=== PATIENT | female | born 1955 | race Hispanic/Latino ===

== ENCOUNTER 2018-06-19 07:26 | Inpatient (IN) | payer BC ==
[2018-06-18 13:16] LABS: BASOPHILS % (AUTO) 0.7 % (0.0-5.0); EOSINOPHILS % (AUTO) 1.1 % (0.0-8.0); HEMATOCRIT 41.8 % (36-48); LYMPHOCYTES % (AUTO) 40.6 % (21.0-51.0); MEAN CORPUSCULAR HEMOGLOBIN 32.1 pg (27.0-33.0); MEAN CORPUSCULAR HGB CONC 33.9 g/dL (32.0-36.0); MEAN CORPUSCULAR VOLUME 94.7 fL (79-99); MONOCYTES % (AUTO) 4.9 % (3.0-13.0); NEUTROPHILS % (AUTO) 52.7 % (40.0-77.0); PLATELET COUNT (AUTO) 185 K/uL (130-400); RED BLOOD CELL COUNT(AUTO) 4.41 MIL/uL (4.00-5.50); RED CELL DISTRIBUTION WIDTH 13.7 % (11.0-15.5); WHITE BLOOD COUNT (AUTO) 6.5 K/uL (4.8-10.8)
[2018-06-18 13:17] VITALS: BP 118/67
[~2018-06-19] VITALS: Ht 160 cm; Wt 73.6 kg
[2018-06-19] VITALS (19 sets, daily range): BP systolic 101–141; BP diastolic 55–79
[~2018-06-19 07:26] MED LIST: AMYL1CAP61 PO; CALDOLOR 800MG+NS 250ML 250 ML IV SCH; CEFAZOLIN SODIUM 1 GM VIAL IVP SCH; ESTR42.53 VG; LACTATED RINGERS 1000ML 1,000 ML IV SCH; OMEP20CA10 PO
[2018-06-19] MEDS ORDERED: BUPIVACAINE/PF 0.25% 30ML VIAL IJ ONE (08:37)
[2018-06-19] MEDS ORDERED: DEXAMETHASONE SOD PHOSPHATE 10MG/ML 1ML VIAL ONE (09:22)
[2018-06-19] MEDS ORDERED: GLYCOPYRROLATE 1 MG/5 ML SYRINGE ONE (09:22)
[2018-06-19] MEDS ORDERED: ONDANSETRON HCL 4 MG/2 ML VIAL ONE (09:22)
[2018-06-19] MEDS ORDERED: LIDOCAINE PF 2% 5ML ABBOJECT ONE (09:22)
[2018-06-19] MEDS ORDERED: FENTANYL CITRATE PF 50 MCG/1 ML 2ML VIAL ONE (09:23)
[2018-06-19] MEDS ORDERED: ROCURONIUM 10MG/1ML SYR 10 MG/ML ML ONE (09:23)
[2018-06-19] MEDS ORDERED: PROPOFOL 10 MG/ML 20ML VIAL IV ONE (09:23)
[2018-06-19] MEDS ORDERED: MIDAZOLAM HCL 1 MG/ML 2ML VIAL ONE (09:23)
[2018-06-19] MEDS ORDERED: NEOSTIGMINE 5MG/5ML SYR IV ONE (09:23)
[2018-06-19] MEDS ORDERED: BUPIVACAINE/EPI/PF 0.5% 30ML VIAL IJ ONE (10:13)
[2018-06-19] MEDS ORDERED: LIDOCAINE 1%-EPI 1:100,000 20 ML VIAL IJ ONE (10:15)
[2018-06-19] MEDS ORDERED: ACETAMINOPHEN-CODEINE 300/30MG TAB PO PRN (11:45)
[2018-06-19] MEDS ORDERED: DOCUSATE SODIUM 100 MG CAP PO PRN (11:45)
[2018-06-19] MEDS ORDERED: SIMETHICONE 80 MG TAB.CHEW PO PRN (11:45)
[2018-06-19] MEDS ORDERED: ONDANSETRON HCL 4 MG/2 ML VIAL IVP PRN (11:45)
[2018-06-19] MEDS ORDERED: BISACODYL 10 MG SUPP.RECT RC PRN (11:45)
[2018-06-19] MEDS: DEXTROSE 5 %-0.45 % NACL 1,000 ML IV PRN ×2 (13:46→23:13)
[2018-06-19] MEDS: CALDOLOR 800MG+NS 250ML 250 ML IVPB SCH (19:24)
[2018-06-19] MEDS: CEFAZOLIN 3GM /D5W 100ML 100 ML IV SCH (21:11)
[2018-06-20 00:18] VITALS: BP 112/66
[2018-06-20] MEDS: CALDOLOR 800MG+NS 250ML 250 ML IVPB SCH (03:31)
[2018-06-20 04:24] VITALS: BP 131/66
[2018-06-20] MEDS: CEFAZOLIN 3GM /D5W 100ML 100 ML IV SCH (05:56)
[2018-06-20 06:49] LABS: HEMATOCRIT 37.9 % (36-48); MEAN CORPUSCULAR HEMOGLOBIN 32.3 pg (27.0-33.0); MEAN CORPUSCULAR HGB CONC 34.2 g/dL (32.0-36.0); MEAN CORPUSCULAR VOLUME 94.3 fL (79-99); PLATELET COUNT (AUTO) 146 K/uL (130-400); RED BLOOD CELL COUNT(AUTO) 4.02 MIL/uL (4.00-5.50); RED CELL DISTRIBUTION WIDTH 13.5 % (11.0-15.5); WHITE BLOOD COUNT (AUTO) 9.9 K/uL (4.8-10.8)
[2018-06-20 07:39] VITALS: BP 121/53
[2018-06-20] MEDS ORDERED: PANTOPRAZOLE SODIUM 40 MG TABLET.DR PO SCH (09:00)
[2018-06-20 11:05] VITALS: BP 136/74
[2018-06-20] MEDS ORDERED: IBUPROFEN 800 MG TAB PO SCH (11:45)
== END 2018-06-20 15:25 | disposition home or self-care (01) | DRG 743 ==
LOC: DAH 07:26 → WSH 07:27 → EDSTATUS 10:00 → WSH 12:55 → DAH 23:05
PROC: 0UT9FZZ Resection of Uterus, Via Natural or Artificial Opening With Percutaneous Endoscopic Assistance (ICD-10-PCS; principal; 2018-06-19 09:20)
PROC: 0JQC0ZZ Repair Pelvic Region Subcutaneous Tissue and Fascia, Open Approach (ICD-10-PCS; 2018-06-19 09:20)
PROC: 3E02340 Introduction of Influenza Vaccine into Muscle, Percutaneous Approach (ICD-10-PCS; 2018-06-20)
DX: N81.4 Uterovaginal prolapse, unspecified (principal); N92.0 Excessive and frequent menstruation with regular cycle; N81.6 Rectocele; N83.8 Other noninflammatory disorders of ovary, fallopian tube and broad ligament; Z80.3 Family history of malignant neoplasm of breast; Z82.49 Family history of ischemic heart disease and other diseases of the circulatory system; Z23 Encounter for immunization
CPT/HCPCS: 36415; 85025; 85027; 86850; 86900; 86901; 88104; 88305; A4344; A4351; J0690; J1100; J1741; J2001; J2250; J2405; J2704; J2710; J3010; J3490; J7030; J7120; Q2035

== ENCOUNTER 2022-03-21 05:30 | Observation (INO) | payer BC ==
[2022-03-20 12:04] LABS: APPEARANCE,URINE CLEAR (CLEAR); BILIRUBIN,URINE NEGATIVE (NEGATIVE); COLOR,URINE YELLOW (YELLOW); GLUCOSE, URINE (UA) NEGATIVE (NEGATIVE); KETONES,URINE NEGATIVE (NEGATIVE); LEUKOCYTE ESTERASE ,URINE NEGATIVE (NEGATIVE); NITRATE,URINE NEGATIVE (NEGATIVE); OCCULT BLOOD,URINE TRACE-INTACT (NEGATIVE); PROTEIN,URINE NEGATIVE (NEGATIVE); UROBILINOGEN,URINE 0.2 mg/dL (0.2-1.0)
[2022-03-20 12:06] LABS: BASOPHILS % (AUTO) 0.3 % (0.0-5.0); HEMATOCRIT 40.4 % (36-48); LYMPHOCYTES % (AUTO) 36.8 % (21.0-51.0); MEAN CORPUSCULAR HEMOGLOBIN 31.9 pg (27.0-33.0); MEAN CORPUSCULAR HGB CONC 33.7 g/dL (32.0-36.0); MEAN CORPUSCULAR VOLUME 94.8 fL (79-99); MONOCYTES % (AUTO) 5.5 % (3.0-13.0); NEUTROPHILS % (AUTO) 56.2 % (40.0-77.0); PLATELET COUNT (AUTO) 180 K/uL (130-400); RED BLOOD CELL COUNT(AUTO) 4.26 MIL/uL (4.00-5.50); WHITE BLOOD COUNT (AUTO) 5.9 K/uL (4.8-10.8)
[2022-03-20 12:16] LABS: INR 0.95 (0.85-1.15); PROTHROMBIN TIME 10.4 SEC (9.6-11.6)
[2022-03-20 12:18] LABS: PARTIAL THROMBOPLASTIN TIME 26.2 SEC (26.3-35.5)
[2022-03-20 13:01] LABS: BACTERIA,URINE Rare /HPF (None Seen); RBC,URINE 0-1 /HPF (0-1); SQUAMOUS EPITHELIAL CELL,UR Rare /HPF (0-2); WBC,URINE None Seen /HPF (0-1)
[2022-03-20 14:28] VITALS: BP 147/72
[~2022-03-21] VITALS: Ht 157.5 cm; Wt 66.5 kg
[2022-03-21] VITALS (24 sets, daily range): BP systolic 85–152; BP diastolic 43–88
[~2022-03-21 05:30] MED LIST changes: -AMYL1CAP61 PO; -CALDOLOR 800MG+NS 250ML 250 ML IV SCH; -CEFAZOLIN SODIUM 1 GM VIAL IVP SCH; -ESTR42.53 VG; -LACTATED RINGERS 1000ML 1,000 ML IV SCH; -OMEP20CA10 PO; +OMEP40CA21 PO
[2022-03-21] MEDS: CEFAZOLIN SODIUM 1 GM VIAL IVP SCH ×2 (06:00→10:38)
[2022-03-21] MEDS: LACTATED RINGERS 1000ML 1,000 ML IV SCH ×2 (07:23→12:45)
[2022-03-21] MEDS ORDERED: TRANEXAMIC ACID 1000MG/10ML ONE (08:35)
[2022-03-21] MEDS ORDERED: FENTANYL CITRATE PF 50 MCG/1 ML 5ML AMP IV ONE (09:52)
[2022-03-21] MEDS ORDERED: ROCURONIUM 10MG/1ML SYR 10 MG/ML ML ONE (09:52)
[2022-03-21] MEDS ORDERED: MIDAZOLAM HCL 1 MG/ML 2ML VIAL ONE (09:52)
[2022-03-21] MEDS ORDERED: PROPOFOL 10 MG/ML 20ML VIAL IV ONE (09:52)
[2022-03-21] MEDS ORDERED: ONDANSETRON 4MG INJ ONE (09:53)
[2022-03-21] MEDS ORDERED: LIDOCAINE PF 100MG/5ML (2%) SYRINGE 5ML ONE (09:54)
[2022-03-21] MEDS ORDERED: KETOROLAC 30MG VIAL (30MG/ML) ONE (11:33)
[2022-03-21] MEDS ORDERED: ESTROGENS,CONJUGATED 0.625 MG/GM 42.5 GM VAG CRM VG ONE (12:27)
[2022-03-21] MEDS ORDERED: EPHEDRINE SULFATE 50 MG/ML AMPULE ONE (13:07)
[2022-03-21] MEDS ORDERED: BISACODYL 10 MG SUPP.RECT RC PRN (15:30)
[2022-03-21] MEDS ORDERED: ACETAMINOPHEN WITH CODEINE 1 TAB TAB PO PRN (15:30)
[2022-03-21] MEDS ORDERED: PROMETHAZINE HCL 25 MG/ML 1ML AMPULE IM PRN ×2 (15:30)
[2022-03-21] MEDS ORDERED: MEPERIDINE-PF 75 MG/ML SYG IM PRN (15:30)
[2022-03-21] MEDS ORDERED: IBUPROFEN 600 MG TABLET PO PRN (15:30)
[2022-03-21] MEDS ORDERED: SIMETHICONE 80 MG TAB.CHEW PO PRN (15:30)
[2022-03-21] MEDS ORDERED: ONDANSETRON 4MG INJ IVP PRN (15:30)
[2022-03-21] MEDS: DEXTROSE 5 %-0.45 % NACL 1,000 ML IV PRN (21:24)
[2022-03-22] VITALS (7 sets, daily range): BP systolic 103–136; BP diastolic 51–81
[2022-03-22] MEDS: DEXTROSE 5 %-0.45 % NACL 1,000 ML IV PRN (05:18)
[2022-03-22 05:40] LABS: HEMATOCRIT 37.6 % (36-48); MEAN CORPUSCULAR HEMOGLOBIN 31.4 pg (27.0-33.0); MEAN CORPUSCULAR HGB CONC 33.2 g/dL (32.0-36.0); MEAN CORPUSCULAR VOLUME 94.5 fL (79-99); RED BLOOD CELL COUNT(AUTO) 3.98 MIL/uL (4.00-5.50); RED CELL DISTRIBUTION WIDTH 13.1 % (11.0-15.5)
[2022-03-22] MEDS: DOCUSATE SODIUM 100 MG CAP PO PRN ×2 (08:12→20:47)
[2022-03-22] MEDS: NITROFURANTOIN MONOHYD/M-CRYST 100 MG CAPSULE PO SCH ×2 (08:12→20:47)
[2022-03-22] MEDS: SIMETHICONE 80 MG TAB.CHEW PO PRN ×2 (08:22→20:46)
[2022-03-22] MEDS: IBUPROFEN 600 MG TABLET PO PRN (17:11)
[2022-03-23] MEDS: IBUPROFEN 600 MG TABLET PO PRN ×2 (00:52→08:49)
[2022-03-23] MEDS ORDERED: ACETAMINOPHEN WITH CODEINE 1 TAB TAB PO PRN (03:00)
[2022-03-23 03:52] VITALS: BP 140/70
[2022-03-23 07:23] VITALS: BP 119/72
[2022-03-23] MEDS: DOCUSATE SODIUM 100 MG CAP PO PRN (08:45)
[2022-03-23] MEDS: NITROFURANTOIN MONOHYD/M-CRYST 100 MG CAPSULE PO SCH (08:45)
[2022-03-23] MEDS: SIMETHICONE 80 MG TAB.CHEW PO PRN (08:46)
[2022-03-23] MEDS ORDERED: DOCU-116 PO (10:54)
[2022-03-23] MEDS ORDERED: NITR100C4 PO (10:54)
[2022-03-23] MEDS ORDERED: ACET-2079 PO (10:55)
[2022-03-23 11:50] VITALS: BP 110/63
== END 2022-03-23 12:35 | disposition home or self-care (01) ==
LOC: DAH 05:30 → WSH 05:31
PROVIDERS: ADMIT Obstetrics & Gynecology; ATTEND Obstetrics & Gynecology
DX: N81.10 Cystocele, unspecified (principal); Z20.822 Contact with and (suspected) exposure to COVID-19; N81.6 Rectocele; N81.5 Vaginal enterocele; K21.9 Gastro-esophageal reflux disease without esophagitis; Z90.710 Acquired absence of both cervix and uterus; Z79.899 Other long term (current) drug therapy
CPT/HCPCS: 85025; 85610; 85730; 86850; 86900; 86901; 87426; 81001; 36415 ×2; 57265; 57288; 85027; A6260; G0378 ×53; G0379; A4663; A4351; A6266; A4606; A4344; J7120; J3010; J0690; J2001; J3490; J2250; J2704; J2405; J1885; C1771; A4215; A4223; A4222; A4221; A4600; A4510

== ENCOUNTER → 2024-08-15 | Outpatient (CLI) | payer OTHER ==
[~2024-08-15] MED LIST changes: +ACET-2079 PO; +DOCU-116 PO; +NITR100C4 PO
--- NOTE | 2024-08-15 12:12 | HMCIMG ---
CT HEART SAVER PROMOTIONAL HISTORY: Calcium scoring COMPARISON: None TECHNIQUE: Computed tomography of the heart was performed with ECG gating and suspended respiration. Postprocessing was performed on a computer workstation to obtain diastolic phase images, determine calcium score and provide a quantitative assessment of extent of disease. This CT included only the heart. HeartSaver score is 12.90. Please see cardiac calcium score report. The available CT chest images show no acute finding. CT was performed with one or more following dose reduction techniques: automated exposure control, adjustment of the mA and kv according to patient's size, or use of a iterative reconstruction technique.
== END | disposition home or self-care (01) ==
LOC: RAH 11:06
PROVIDERS: ATTEND Internal Medicine Cardiovascular Disease
DX: Z13.6 Encounter for screening for cardiovascular disorders (principal)
CPT/HCPCS: 75571

== ENCOUNTER → 2024-08-30 | Outpatient (CLI) | payer BC, MEDICARE | END | disposition home or self-care (01) | LOC: SHCH 11:14 | PROVIDERS: ATTEND Internal Medicine Cardiovascular Disease | DX: I87.2 Venous insufficiency (chronic) (peripheral) (principal) | CPT/HCPCS: 93970 ==

== ENCOUNTER → 2025-05-18 | Outpatient (CLI) | payer MEDICARE ==
[2025-05-18 11:13] LABS: CREATININE 1.0 mg/dL (0.5-1.0); GLOMERULAR FILTR. RATE CALC 61.0 mL/min (>90); UREA NITROGEN, BLOOD 15.0 mg/dL (7-18)
== END | disposition home or self-care (01) ==
LOC: LAB 10:46
PROVIDERS: ATTEND Internal Medicine Gastroenterology
DX: K57.30 Diverticulosis of large intestine without perforation or abscess without bleeding (principal); R10.32 Left lower quadrant pain; R94.5 Abnormal results of liver function studies
CPT/HCPCS: 36415; 82565; 84520

== ENCOUNTER → 2025-05-21 | Outpatient (CLI) | payer MEDICARE ==
[~2025-05-21] MED LIST changes: +IOHEXOL-350 75 ML VIAL IV ONE
--- NOTE | 2025-05-21 21:56 | HMCIMG ---
EXAM: CT ABDOMEN AND PELVIS WITH CONTRAST Technique: Helical contrast-enhanced computed tomography from lung bases through pelvis with thin-section axial acquisition and coronal/sagittal reformations; lung and soft-tissue algorithms reviewed. CTDIvol 17.4 mGy; DLP 828.3 mGy???cm. Contrast: Standard dose of intravenous contrast administered; positive oral contrast. Clinical Information: Left lower quadrant pain. Findings: Lung bases: Clear without pleural effusion or consolidation. Liver: Mild hepatic steatosis; normal size and contour; simple cyst in the inferior right lobe measuring 11 mm; no intrahepatic biliary dilatation. Gallbladder and biliary tree: Post-cholecystectomy status; common duct caliber within expected limits. Pancreas: Normal size and enhancement; no ductal dilatation or peripancreatic inflammation. Spleen: Normal size and homogeneous enhancement; no focal lesion. Adrenals: Normal bilaterally. Kidneys and ureters: Symmetric enhancement without hydronephrosis or nephrolithiasis; simple cortical cyst in the left lower pole measuring 16 mm (Bosniak I); ureters normal in caliber. Stomach and small bowel: Stomach distended without focal wall thickening; small-bowel loops normal in caliber; no obstruction. Colon and appendix: Colon normal in caliber with fecal loading; no wall thickening or pericolonic inflammation; appendix normal. Peritoneum and mesentery: No free air or free fluid; no mesenteric edema. Lymph nodes: No pathologic abdominal or pelvic adenopathy. Vasculature: Aorta and major branches normal in course and caliber; mild aortic atherosclerotic calcification. Pelvic organs: Urinary bladder appropriately distended with smooth contour; post-hysterectomy status. Abdominal wall/soft tissues: Small fat-containing umbilical hernia. Small fat-containing bilateral inguinal hernias. Osseous structures: No acute abnormality. Impression: * No CT evidence of an acute intra-abdominal or pelvic inflammatory process to explain left lower quadrant pain. * Mild hepatic steatosis with an 11 mm simple hepatic cyst. * Left kidney 16 mm Bosniak I simple cortical cyst; no hydronephrosis or ureteral calculus. * Post-cholecystectomy and post-hysterectomy status. * Mild aortic atherosclerotic calcification. * Small fat-containing bilateral inguinal hernias and a small fat-containing umbilical hernia. /Mico
== END | disposition home or self-care (01) ==
LOC: RAH 10:30
PROVIDERS: ATTEND Internal Medicine Gastroenterology
DX: K40.20 Bilateral inguinal hernia, without obstruction or gangrene, not specified as recurrent (principal); K76.0 Fatty (change of) liver, not elsewhere classified; I70.0 Atherosclerosis of aorta; N28.1 Cyst of kidney, acquired; K76.89 Other specified diseases of liver; R10.32 Left lower quadrant pain; Z90.710 Acquired absence of both cervix and uterus; Z90.49 Acquired absence of other specified parts of digestive tract
CPT/HCPCS: 74177; Q9967